=== PATIENT | female | born 1995 | race Caucasian/White ===

== ENCOUNTER 2017-05-19 11:49 | Emergency (ER) | payer MEDICAID, OTHER ==
[~2017-05-19] VITALS: Ht 162.6 cm; Wt 60.0 kg
[~2017-05-19 11:49] MED LIST: CIPR500T4 PO; FOLI1TAB PO; PRENCAP6 PO
[2017-05-19 11:52] VITALS: BP 127/72; PULSE 75; RESP 18; TEMP 98.1; O2SAT 100
--- NOTE | 2017-05-19 12:22 | PD ---
HPI Chief Complaint: Injury Time Seen by Provider: 12:16 Travel History International Travel<30 days: No Contact w/Intl Traveler<30days: No Traveled to known affect area: No History of Present Illness HPI 42-year-old female presents to the emergency Department with complaint of left foot and ankle pain, swelling, bruising 3 days after injuring it while playing football. Denies paresthesias, loss of sensation to the affected extremity. Denies fever, vomiting. Has been ambulatory on the affected extremity. Has been taking ibuprofen for symptom management. Describes the pain as throbbing. Pain is 10/10. Pain per worse with palpation, movement, ambulation. Pain is decreased while at rest. Allergies to sulfa. Primary care provider is in [place]. Denies significant past medical history. Denies current medications. Has no other medical complaints. No other modifying factors or associated signs and symptoms. PFSH Past Medical History Diabetes: Yes (DIET CONTROLLED) Patient Takes Glucophage: No Diminished Hearing: No Immunizations Current: Yes ?: Not LMP: 05/17/17 : 3 Para: 1 Miscarriage: 1 Past Surgical History Surgical History: No Previous Surgery Social History Alcohol Use: Yes (OCC) Tobacco Use: Yes Substance Use: Yes (marijuana before ) Allergies-Medications (Allergen,Severity, Reaction): Coded Allergies: Sulfa (Sulfonamide Antibiotics) (Unverified Allergy, Severe, 05/19/17) Reported Meds & Prescriptions Reported Meds & Active Scripts Active Ibuprofen 800 Mg Tab 800 Mg PO Q6HR PRN Percocet (Oxycodone-Acetaminophen) 5-325 mg Tab 1-2 Tab PO Q6H PRN Review of Systems Except as stated in HPI: all other systems reviewed are Neg Physical Exam Narrative GENERAL: Well-nourished, well-developed female patient, in no acute distress SKIN: Warm and dry. HEAD: Atraumatic. Normocephalic. EYES: Pupils equal and round. No scleral icterus. No injection or drainage. ENT: Mucosa pink and moist. Airway patent. NECK: Trachea midline. CARDIOVASCULAR: Regular rate. RESPIRATORY: No accessory muscle use. GASTROINTESTINAL: Flat. MUSCULOSKELETAL: Left ankle and foot with tenderness to the lateral, malleolar, and mid foot zone with palpation; with swelling and ecchymosis; without erythema ; no obvious deformity; toes are pink and warm and with sensory intact. Left Lower extremity is supple and nontense with 2+ pedal pulse and sensory intact. No obvious deformities. No clubbing. No cyanosis. NEUROLOGICAL: Awake and alert. Oriented 3. No obvious cranial nerve deficits. Motor grossly within normal limits. Normal speech. PSYCHIATRIC: Appropriate mood and affect; insight and judgment normal. Data Data Last Documented VS Vital Signs Date Time Temp Pulse Resp B/P (MAP) Pulse Ox O2 Delivery O2 Flow Rate FiO2 05/19/17 13:52 05/19/17 11:52 98.1 75 18 100 Orders Orders Ankle, Complete ([id number]) (05/19/17 12:21) Foot, Complete ([id number]) (05/19/17 12:21) Ice/Cold Pack (05/19/17 12:21) Crutches (05/19/17 12:21) Oxycodone-Acetamin 5-325 Mg (Percocet (05/19/17 12:30) Splint Or Brace Apply/Monitor (05/19/17 13:06) Ed Discharge Order (05/19/17 13:15) [facility] Medical Decision Making Medical Screen Exam Complete: Yes Emergency Medical Condition: Yes Medical Record Reviewed: Yes Differential Diagnosis Facture, sprain, injury Narrative Course 21-year-old female with left ankle and foot injury. Percocet, left foot, left ankle x-ray ordered. 1305: Left foot and ankle x-ray concludes: Foot X-Ray 05/19/17 1221 Signed Impressions: Service Date/Time: Friday, May 19, 2017 12:35 - CONCLUSION: Lateral soft tissue swelling. Jagjit Mcmahan MD Ankle X-Ray 05/19/17 1221 Signed Impressions: Service Date/Time: Friday, May 19, 2017 12:36 - CONCLUSION: No acute fracture. Jagjit Mcmahan MD 1307: Dr. Blackmon reviewed the x-ray images and suspects a left navicular fracture of the foot. He is placed in short leg splint. Crutches provided for support. Percocet and ibuprofen prescribed for home. Patient provided Dr. Hannah's information for follow-up. Instructed patient to follow up with plastic sheeting cutter. Instructed patient to follow up with primary care provider. Patient verbalizes understanding and agreement with treatment plan. Patient is medically cleared and stable for discharge. Discussed reasons to return to the emergency department. Patient agrees with treatment plan. The patients vital signs are stable and the patient is stable for outpatient follow-up and treatment. Patient discharged home, stable and in no acute distress. Diagnosis Primary Impression: Left navicular fracture of foot Qualified Codes: S92.255A - Nondisplaced fracture of navicular [scaphoid] of left foot, initial encounter for closed fracture Referrals: Jagjit Hannah DPM [facility] Primary Care Physician Patient Instructions: Foot Fracture in Adults (ED) Departure Forms: Tests/Procedures, Work Release Special Instructions: May work light duty Additional Instructions: Tylenol or ibuprofen as directed and as needed for pain and inflammation Rest, ice, compress, and elevate extremity to decrease pain and inflammation Splint for support; do not remove splint until cleared Crutches for support Avoid aggravating activity; increase activity as tolerated Follow-up with primary care provider Follow-up with plastic sheeting cutter; Dr. Hannah is a plastic sheeting cutter at [place] and his contact information has been provided in her discharge instructions; you can call and make an appointment with him or Return to the emergency department immediately with worsening of symptoms Med/Other Pt SpecificInfo: Prescription(s) given Scripts Ibuprofen (Ibuprofen) 800 Mg Tab 800 MG PO Q6HR Y for PAIN, #40 TAB 0 Refills Prov: Sydnee Farmer 05/19/17 Oxycodone-Acetaminophen (Percocet) 5-325 mg Tab 1-2 TAB PO Q6H Y for PAIN, #20 TAB 0 Refills Prov: Sydnee Farmer 05/19/17 Disposition: 01 DISCHARGE HOME Condition: Stable Sydnee Farmer May 19, 2017 12:22
[2017-05-19] MEDS ORDERED: oxyCODONE/ACETAMINOPHEN 5 MG/325 MG TAB PO ONE (12:30)
--- NOTE | 2017-05-19 12:52 | RADRPT ---
EXAM DATE/TIME: 05/19/2017 12:36 This report includes an Addendum and supersedes previous reports for this exam. [facility] COMPARISON: No previous studies available for comparison. INDICATIONS : Complains of pain and bruising of left ankle. MEDICAL HISTORY : None. SURGICAL HISTORY : None. ENCOUNTER: Initial ACUITY: 3 days PAIN SCORE: 10/10 LOCATION: Left ankle FINDINGS: Three view exam was performed of the left ankle. The bony structures are in normal alignment. No ev idence of fracture, dislocation, or soft tissue swelling. The ankle mortise is intact. No radiopaqu e foreign bodies are seen. Bony mineralization is normal. CONCLUSION: No acute fracture. Jagjit Mcmahan MD on May 19, 2017 at 12:49 Board Certified Radiologist. This report was verified electronically. ADDENDUM: Re-examination after further physical exam findings were provided demonstrates a small avulsion fract ure of the dorsal navicular bone. Harley Romeo MD on May 19, 2017 at 16:44 Board Certified Radiologist. This report was verified electronically.
--- NOTE | 2017-05-19 12:53 | RADRPT ---
EXAM DATE/TIME: 05/19/2017 12:35 This report includes an Addendum and supersedes previous reports for this exam. [facility] COMPARISON: No previous studies available for comparison. INDICATIONS : Patient complains of left foot pain and bruising of lateral side. MEDICAL HISTORY : None. SURGICAL HISTORY : None. ENCOUNTER: Initial ACUITY: 3 days PAIN SCORE: 10/10 LOCATION: Left foot FINDINGS: Three view examination of the left foot demonstrates lateral soft tissue swelling without dislocation , or fracture. The tarsal bones appear intact. The interphalangeal and metatarsophalangeal joints are intact. The calcaneus is intact. Bony mineralization is normal. CONCLUSION: Lateral soft tissue swelling. Jagjit Mcmahan MD on May 19, 2017 at 12:50 Board Certified Radiologist. This report was verified electronically. ADDENDUM: Further examination after additional physical exam findings were provided demonstrates a small avulsi on fracture of the navicular bone. Harley Romeo MD on May 19, 2017 at 16:42 Board Certified Radiologist. This report was verified electronically.
[2017-05-19] MEDS ORDERED: PERC5TAB12 PO (13:08)
[2017-05-19] MEDS ORDERED: IBUP1TAB7 PO (13:08)
== END 2017-05-19 13:52 | disposition home or self-care (01) ==
LOC: NEPD 11:49
DX: S92.252A Displaced fracture of navicular [scaphoid] of left foot, initial encounter for closed fracture (principal); E11.9 Type 2 diabetes mellitus without complications; Y93.61 Activity, american tackle football; Z88.2 Allergy status to sulfonamides; Z72.0 Tobacco use
CPT/HCPCS: 29515; 73610; 73630; 99283; E0113